=== PATIENT | female | born 2005 | race Caucasian/White ===

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

== ENCOUNTER 2025-01-05 17:20 | Emergency (ER) | payer OTHER ==
[~2025-01-05] VITALS: Ht 160 cm; Wt 63.5 kg
[~2025-01-05 17:20] MED LIST changes: +CIPRO500 MG PO
[2025-01-05 18:42] LABS: BILIRUBIN Negative (Negative); BLOOD 1+ (Negative); CLARITY Cloudy (Clear); COLOR Yellow (Yellow); KETONE Negative (Negative); LEUKO ESTERASE 3+ (Negative); NITRITE Negative (Negative); PH 7.5 (4.5-8.0); SPECIFIC GRAVITY <= 1.005 (1.001-1.030); UROBILINOGEN 0.2 E.U./dl (0.0-1.0)
[2025-01-05 18:51] LABS: BACTERIA 2+; WBC TNTC wbc/hpf (0-5)
[2025-01-05] MEDS ORDERED: CIPRO500 MG PO (18:52)
[2025-01-05] MEDS ORDERED: Ciprofloxacin Hydrochloride 500 MG TAB PO ONE (18:55)
== END 2025-01-05 19:05 | disposition home or self-care (01) ==
LOC: ED 17:20
PROVIDERS: Nurse Practitioner Family
DX: N39.0 Urinary tract infection, site not specified (principal); Z88.0 Allergy status to penicillin; Z88.1 Allergy status to other antibiotic agents; Z88.8 Allergy status to other drugs, medicaments and biological substances; Z87.440 Personal history of urinary (tract) infections